=== PATIENT | female | born 1965 | race Caucasian/White ===

== ENCOUNTER → 2016-06-28 | Outpatient (CLI) | payer OTHER ==
[~2016-06-28] MED LIST: GABA-112 PO; GABA1CAP5 PO; GADAVIST IV PRN; GLIM4TAB2 PO; GLUCAGON FOR INJ 1 MG VIAL ONE; HMLI SC; MIRT15TA53 PO; NURSING VERBAL MED ORDER ONE; PARO40TA3 PO; QUET200T2 PO; SITA50TA5 PO; TOPI25TA10 PO
--- NOTE | 2016-06-28 13:08 | DIAGNOSTIC IMAGING REPORT ---
MR ENTEROGRAPHY COMBO CLINICAL HISTORY: Crohn's disease. COMPARISON STUDY: Abdominal CT dated 06/04/2015. MR enterography dated 12/14/2014. TECHNIQUE: MR enterography of the abdomen and pelvis is performed utilizing various T1 and T2-weighted sequences in the axial and coronal planes. Contrast-enhanced sequences are acquired following the IV administration of 6.5 cc of Gadavist. Dynamic coronal imaging was performed and reviewed on a separate [employer] independent workstation. FINDINGS: The liver is enlarged measuring 23.5 cm in craniocaudal length. There is evidence of hepatic steatosis. The gallbladder is normal as imaged. The spleen, adrenal glands, kidneys, and pancreas are grossly normal. Prominent mesenteric lymph nodes in the right lower quadrant are likely on a reactive basis. There is no abdominal ascites. No pleural effusion is identified. The abdominal aorta is normal in course and caliber. The bladder, uterus, and adnexa are normal as imaged. The bony structures demonstrate normal marrow signal intensity. Again seen are postoperative changes from ileocecectomy with ileocolic anastomosis. There is no evidence of bowel obstruction. Air-fluid levels are noted throughout the colon. The duodenum is normal in configuration. There is a long segment of mildly thick-walled and hyperemic distal small bowel identified just above the ileocolic anastomosis. The very distal ileum demonstrates diminished peristalsis on the dynamic images, and scattered air-fluid levels on the axial T2 sequences. The appearance suggests active Crohn's disease and there is mild hypertrophic change in the surrounding mesenteric fat. There is no evidence of abscess or fistula formation. There is no clear evidence of stricture. The proximal small bowel loops are normal in appearance. IMPRESSION: 1. There is mild hyperemia and wall thickening with productive changes in the surrounding mesenteric fat involving distal ileal loops in the right lower quadrant suggesting active inflammatory bowel disease. This is similar in appearance to the 12/14/2014 examination. 2. There is no clear evidence of abscess, fistula formation, or stricture. 3. There are postoperative changes consistent with previous ileocecal resection and ileocolic anastomosis. No bowel obstruction is identified. 4. Hepatomegaly and severe hepatic steatosis. Dictated: 06/28/2016 12:36 PM Transcribed: 06/28/2016 1:08 PM Lisa Electronically signed by: Devyn Coles M.D. 06/28/2016 1:17 PM Dictated Date/Time: 06/28/2016 12:36 PM
== END | disposition home or self-care (01) ==
LOC: C.MRI 10:34
PROVIDERS: ATTEND Internal Medicine
DX: K50.90 Crohn's disease, unspecified, without complications (principal); R16.0 Hepatomegaly, not elsewhere classified; K76.0 Fatty (change of) liver, not elsewhere classified